=== PATIENT | female | born 1990 | race Caucasian/White ===

== ENCOUNTER 2016-04-19 20:43 | Emergency (ER) | payer OTHER ==
[2016-04-19] MEDS ORDERED: IBUPROFEN 600 MG TABLET ONE (22:51)
[2016-04-19] MEDS ORDERED: DIPHTH,PERTUSS(ACELL),TET VAC 0.5 ML VIAL IM V ONE (22:51)
[2016-04-19] MEDS ORDERED: CEPHALEXIN 500 MG CAPSULE ONE (23:07)
== END 2016-04-19 23:16 | disposition home or self-care (01) ==
LOC: ED 20:43
DX: L02.511 Cutaneous abscess of right hand (principal); Z23 Encounter for immunization
CPT/HCPCS: 90715; 90471; 99283 ×2; 26010 ×2; A9270 ×2

== ENCOUNTER 2016-04-20 18:20 | Emergency (ER) | payer OTHER ==
[2016-04-20] MEDS ORDERED: DOXYCYCLINE HYCLATE 100 MG TABLET ONE (19:46)
[2016-04-20] MEDS ORDERED: OXYCODONE/ACETAMINOPHEN 5/325 MG TABLET ONE (19:47)
== END 2016-04-20 20:05 | disposition home or self-care (01) ==
LOC: ED 18:20
DX: L02.511 Cutaneous abscess of right hand (principal)
CPT/HCPCS: 99283 ×2; 26010 ×2; A9270 ×2

== ENCOUNTER 2016-06-11 05:17 | Emergency (ER) | payer OTHER ==
[2016-06-11 06:11] LABS: SPECIFIC GRAVITY 1.025 (1.001-1.030); URINE BILIRUBIN NEGATIVE (NEGATIVE); URINE BLOOD 2+ (NEGATIVE); URINE GLUCOSE (UA) NEGATIVE (NEGATIVE); URINE LEUKOCYTE ESTERASE NEGATIVE (NEGATIVE); URINE NITRITE NEGATIVE (NEGATIVE); URINE PROTEIN TRACE (NEGATIVE); URINE UROBILINOGEN NORMAL (0-1 mg/dl)
[2016-06-11 06:15] LABS: HCG,QUALITATIVE URINE NEGATIVE
[2016-06-11 06:16] LABS: URINE APPEARANCE CLEAR; URINE COLOR YELLOW
[2016-06-11] MEDS ORDERED: METRONIDAZOLE 500 MG TABLET ONE (06:17)
[2016-06-11] MEDS ORDERED: AZITHROMYCIN 250 MG TABLET ONE (06:17)
[2016-06-11] MEDS ORDERED: CEFTRIAXONE SODIUM 250 MG VIAL ONE (06:17)
[2016-06-11 06:20] LABS: URINE BACTERIA FEW; URINE EPITHELIAL CELLS 0-2 /hpf; URINE MUCUS 2+; URINE WBC 0-1 /hpf
[2016-06-11 06:21] LABS: AMPHETAMINES/METHAMPHETAMINES POSITIVE (NEGATIVE); COCAINE NEGATIVE (NEGATIVE); METHADONE NEGATIVE (NEGATIVE); OPIATES NEGATIVE (NEGATIVE)
[2016-06-11 06:22] LABS: MARIJUANA POSITIVE (NEGATIVE); TRICYCLIC ANTIDEPRESSANTS NEGATIVE (NEGATIVE)
== END 2016-06-11 07:13 | disposition home or self-care (01) ==
LOC: ED 05:17
DX: N93.9 Abnormal uterine and vaginal bleeding, unspecified (principal); N89.8 Other specified noninflammatory disorders of vagina
CPT/HCPCS: 81025; 87081; 80305; 81001; 87210; 99283 ×2; 96372; A9270 ×2; J0696